=== PATIENT | female | born 1980 | race Hispanic/Latino ===

== ENCOUNTER 2020-09-07 20:03 | Inpatient (IN) | payer MEDICAID ==
[~2020-09-07] VITALS: Ht 167.6 cm; Wt 121.1 kg
[~2020-09-07 20:03] MED LIST: IBUP-2070 PO; IRON-10 PO; PNV1TABL17 PO
[2020-09-07] MEDS ORDERED: LACTATED RINGERS 500 ML 500 ML IV PRN (20:15)
[2020-09-07] MEDS ORDERED: OXYTOCIN-LR 20 UNITS/1000 ML 1,000 ML IV SCH (20:15)
[2020-09-07] MEDS ORDERED: EPHEDRINE SULFATE 50 MG/ML AMPULE IVP PRN (20:15)
[2020-09-07] MEDS ORDERED: NALOXONE HCL 0.4 MG/1 ML ML IV PRN (20:15)
[2020-09-07] MEDS ORDERED: BUTORPHANOL TARTRATE 2 MG/ML IVP PRN (20:15)
[2020-09-07] MEDS ORDERED: ROPIVACAINE 0.2% 100ML VIAL 100 ML EP SCH (20:15)
[2020-09-07 20:54] LABS: APPEARANCE,URINE Clear (CLEAR); BILIRUBIN,URINE Negative (NEGATIVE); COLOR,URINE Yellow (YELLOW); GLUCOSE, URINE (UA) Negative (NEGATIVE); KETONES,URINE Negative (NEGATIVE); LEUKOCYTE ESTERASE ,URINE Trace (NEGATIVE); NITRATE,URINE Negative (NEGATIVE); OCCULT BLOOD,URINE Negative (NEGATIVE); PH,URINE 6.5 (5.0-8.0); PROTEIN,URINE Negative (NEGATIVE)
[2020-09-07 21:18] LABS: HEMATOCRIT 37.8 % (36-48); MEAN CORPUSCULAR HEMOGLOBIN 29.9 pg (27.0-33.0); MEAN CORPUSCULAR HGB CONC 34.1 g/dL (32.0-36.0); MEAN CORPUSCULAR VOLUME 87.5 fL (79-99); RED BLOOD CELL COUNT(AUTO) 4.32 MIL/uL (4.00-5.50); RED CELL DISTRIBUTION WIDTH 13.3 % (11.0-15.5); WHITE BLOOD COUNT (AUTO) 8.5 K/uL (4.8-10.8)
[2020-09-07 21:22] LABS: BACTERIA,URINE Few /HPF (None Seen); RBC,URINE 0-1 /HPF (0-1); SQUAMOUS EPITHELIAL CELL,UR Few /HPF (0-2)
[2020-09-08 02:06] VITALS: BP_SYST 121
[2020-09-08] MEDS: LACTATED RINGERS 1000ML 1,000 ML IV PRN ×3 (03:13→08:35)
[2020-09-08] MEDS ORDERED: FENTANYL CITRATE PF 50 MCG/1 ML 2ML VIAL ONE ×2 (08:35→14:32)
[2020-09-08] MEDS ORDERED: CALDOLOR 800MG+NS 250ML 250 ML IV PRN (13:30)
[2020-09-08] MEDS ORDERED: CEFAZOLIN SODIUM 1 GM VIAL IVP PRN (13:30)
[2020-09-08] MEDS ORDERED: CALDOLOR 800MG+NS 250ML 250 ML IV ONE (13:31)
[2020-09-08] MEDS ORDERED: TRANEXAMIC ACID 1000MG/10ML ONE (13:31)
[2020-09-08] MEDS ORDERED: CEFAZOLIN SODIUM 1 GM VIAL ONE (13:31)
[2020-09-08] MEDS ORDERED: METHYLERGONOVINE MALEATE 0.2 MG/1 ML ML ONE (13:31)
[2020-09-08] MEDS ORDERED: EPINEPHRINE 1 MG/ML AMPULE ONE (13:42)
[2020-09-08] MEDS ORDERED: DURAMORPH PF1 MG/ML 10ML AMP IV ONE (13:42)
[2020-09-08] MEDS ORDERED: ONDANSETRON HCL 4 MG/2 ML VIAL ONE (13:46)
[2020-09-08] MEDS ORDERED: LIDOCAINE 2%-EPI 1:200,000 20 ML VIAL IJ ONE (13:57)
[2020-09-08] MEDS ORDERED: LIDOCAINE HCL-MPF 2% 5ML VIAL ONE (14:00)
[2020-09-08] MEDS ORDERED: CEFAZOLIN SODIUM 1 GM VIAL IVP ONE (14:28)
[2020-09-08] MEDS ORDERED: OXYTOCIN 10 UNIT/1ML 10ML VIAL ONE (14:35)
[2020-09-08] MEDS ORDERED: PROMETHAZINE HCL 25 MG/ML 1ML AMPULE IM PRN (15:30)
[2020-09-08] MEDS ORDERED: MEPERIDINE-PF 75 MG/ML SYG IM PRN (15:30)
[2020-09-08] MEDS ORDERED: LANOLIN 30GM OINTMENT TP PRN (15:30)
[2020-09-08] MEDS ORDERED: BISACODYL 10 MG SUPP.RECT RC PRN (15:30)
[2020-09-08] MEDS ORDERED: DEXTROSE 5 %-0.45 % NACL 1,000 ML IV PRN (15:30)
[2020-09-08] MEDS ORDERED: SODIUM CHLORIDE 0.9% 10 ML VIAL IVP PRN (15:30)
[2020-09-08] MEDS ORDERED: DIPHENHYDRAMINE HCL 25 MG CAPSULE PO PRN (15:30)
[2020-09-08] MEDS ORDERED: OXYTOCIN-LR 20 UNITS/1000 ML 1,000 ML IV PRN (15:30)
[2020-09-08] MEDS ORDERED: HYDROCODONE/ACETAMINOPHEN 5/325 MG TAB PO PRN (15:30)
[2020-09-08] MEDS ORDERED: ACETAMINOPHEN EXTRA STRENGTH 500 MG TABLET PO PRN (15:30)
[2020-09-08 16:47] VITALS: BP 124/67
[2020-09-08] MEDS: ACETAMINOPHEN-CODEINE 300/30MG TAB PO PRN (17:17)
[2020-09-08] MEDS ORDERED: METHYLERGONOVINE MALEATE 0.2 MG/1 ML ML IM PRN (17:30)
[2020-09-08 20:00] VITALS: BP 123/73
[2020-09-08] MEDS: SIMETHICONE 80 MG TAB.CHEW PO PRN (20:47)
[2020-09-08] MEDS: DOCUSATE SODIUM 100 MG CAP PO SCH (20:47)
[2020-09-08] MEDS: CALDOLOR 800MG+NS 250ML 250 ML IV SCH (23:04)
[2020-09-08 23:10] VITALS: BP 122/74
[2020-09-09] MEDS: ACETAMINOPHEN-CODEINE 300/30MG TAB PO PRN (04:26)
[2020-09-09 04:27] VITALS: BP 117/67
--- NOTE | 2020-09-09 06:00 | NUR ---
ACTIVITY; BATRES CATHETER TAKEN OUT PATIENT TOLERATED IT WELL. JACINTO CARE DONE, ABDOMINAL BINDER APPLIED. ADVICE TO CALL FOR HELP IF NEEDED SHE VERBALIZES UNDERSTANDING. SHE WAS ASSISTED TO GET UP IN BED AND DANGLE HER LEGS AND SIT AT BEDSIDE CHAIR.
[2020-09-09 07:30] VITALS: BP 116/66
--- NOTE | 2020-09-09 07:30 | NUR ---
PATIENT UP TO CHAIR AND DENIES ANY DIZZINESS ON AMBULATION. STATES BLEEDING SMALL AND INFORMED PATIENT OF METHERGINE BEING GIVEN TO CONTROL BLEEDING AFTER DELIVERY, VERBALIZED UNDERSTANDING. VITAL SIGNS ARE STABLE AND PIV IS PATENT AND INFUSING WELL. LAST YANALOR HUNG AND PATIENT STATES HAVING PAIN OF 4 AT THIS TIME. PLAN OF CARE EXPLAINED TO PATIENT AND POSSIBLE DISCHARGE THIS AFTERNOON AFTER BABY IS 24 HOURS. REMINDED PATIENT OF BEING NON-IMMUNE TO RUBELLA AND OFFERED MMR AND TDAP AND AGAIN REFUSED VACCINES.
[2020-09-09] MEDS: CALDOLOR 800MG+NS 250ML 250 ML IV SCH (07:44)
--- NOTE | 2020-09-09 08:45 | NUR ---
ASSISTED UP TO BATHROOM AND WAS ABLE TO VOID 550CC OF BLOOD TINGED URINE AND NO CLOTS NOTED. TOLERATED ACTIVITY WELL.
[2020-09-09] MEDS ORDERED: MEASLES/MUMPS/RUBELLA VACCINE, LIVE 0.5 ML/VIAL SQ SCH (09:00)
[2020-09-09] MEDS ORDERED: DIPH,PERTUSS(ACELL),TET VAC/PF 0.5 ML VIAL IM SCH (09:00)
[2020-09-09] MEDS ORDERED: LIDOCAINE 5% TOPICAL PATCH TP SCH (09:00)
[2020-09-09] MEDS: DOCUSATE SODIUM 100 MG CAP PO SCH (09:03)
[2020-09-09] MEDS: SIMETHICONE 80 MG TAB.CHEW PO PRN ×2 (09:03→15:02)
--- NOTE | 2020-09-09 11:30 | NUR ---
PATIENT UP TO BATHROOM AND VOIDED 600CC OF YELLOW URINE. PIV WAS REMOVED PATIENT IS GOING TO BE DISCHARGED THIS AFTERNOON ONCE BABY IS DISCHARGED. PIV REMOVED AND IV SITE HAS NO REDNESS OR EDEMA.
[2020-09-09 11:50] VITALS: BP 116/69
[2020-09-09 12:11] LABS: HEPATITIS Bs ANTIGEN SCREEN P Negative (Negative)
--- NOTE | 2020-09-09 13:30 | NUR ---
PATIENT WAS GIVEN DISCHARGE INSTRUCTIONS AND VERBALIZED UNDERSTANDING INSTRUCTIONS GIVEN. DENIES HAVING ANY QUESTIONS. PATIENT WILL BE WAITING ON BABY'S DISCHARGE.
[2020-09-09] MEDS ORDERED: IBUPROFEN 800 MG TAB PO PRN (14:54)
[2020-09-09 15:45] VITALS: BP 115/67
--- NOTE | 2020-09-09 15:45 | NUR ---
PATIENT WAS TAKEN VIA W/C CARRYING BABY IN ARMS TO FAMILY VEHICLE AND WAS DISCHARGED TO HER SPOUSE IN STABLE CONDITION. PATIENT STATES FEELING BETTER AFTER TAKING MOTRIN.
== END 2020-09-09 15:45 | disposition home or self-care (01) | DRG 540 ==
LOC: LDH 20:03 → WSH 09-08 16:41
PROVIDERS: ADMIT Obstetrics & Gynecology; ATTEND Obstetrics & Gynecology
PROC: 10D00Z1 Extraction of Products of Conception, Low, Open Approach (ICD-10-PCS; principal; 2020-09-07)
DX: O36.63X0 Maternal care for excessive fetal growth, third trimester, not applicable or unspecified (principal); Z3A.39 39 weeks gestation of pregnancy; Z37.0 Single live birth; Z28.21 Immunization not carried out because of patient refusal; O62.2 Other uterine inertia; O99.214 Obesity complicating childbirth; E66.9 Obesity, unspecified
CPT/HCPCS: 36415; 59510; 81001; 85027; 86592; 86850; 86900; 86901; 87340; A4314; A4344; G0378; J0171; J0690; J1741; J2210; J2274; J2405; J2590; J2795; J3010; J3490; J7120

== ENCOUNTER → 2024-01-16 | Outpatient (CLI) | payer OTHER | END | disposition home or self-care (01) | LOC: RAH 08:13 | PROVIDERS: ATTEND Family Medicine | DX: Z12.31 Encounter for screening mammogram for malignant neoplasm of breast (principal); N64.9 Disorder of breast, unspecified | CPT/HCPCS: 77067 ==